=== PATIENT | female | born 1965 | race African-American/Black ===

== ENCOUNTER 2017-07-06 13:29 | Observation (INO) ==
[2017-07-06] MEDS ORDERED: ONDANSETRON 4 MG/2 ML VIAL IV STA (14:04)
[2017-07-06] MEDS ORDERED: INSULIN REGULAR 100 UNIT/ML IV STA (14:04)
[2017-07-06] MEDS ORDERED: ASPIRIN 325 MG TABLET PO STA (14:04)
[2017-07-06] MEDS ORDERED: INSULIN REGULAR 100 UNIT/ML ONE (14:10)
[2017-07-06] MEDS ORDERED: ASPIRIN 325 MG TABLET ONE (14:10)
[2017-07-06] MEDS ORDERED: ONDANSETRON 4 MG/2 ML VIAL ONE (14:10)
[2017-07-06 14:31] LABS: Basophils % 0.6 % (0.0-0.8); Eosinophils # 0.1 10*3/uL (0.0-0.87); Eosinophils % 1.2 % (0.00-10.9); Hematocrit 36.4 VOL% (35.7-47.0); Immature Granulocytes % 0.4 %; Immature Granulocytes Absolute 0.03 #; Lymphocytes # 2.2 10*3/uL (1.4-4.0); Lymphocytes % 31.1 % (21.3-54.2); Mean Corpuscular Hemoglobin 30 PG (27-34); Mean Corpuscular Volume 90.1 FL (87-102); Mean Platelet Volume 11.5 FL (9.6-12.0); Monocytes # 0.6 10*3/uL (0.11-0.8); Monocytes % 8.5 % (1.7-12.7); Neutrophils # 4.1 10*3/uL (1.4-7.4); Neutrophils % 58.2 % (38.7-73.9); Platelet Count 303 T/CUMM (130-400); Red Blood Count 4.04 MC/CUMM (3.8-5.5); Red Cell Distribution Width 15.3 % (9.3-17.3)
[2017-07-06 14:43] LABS: PT Patient Result 10.4 SECS
[2017-07-06 14:58] LABS: Alanine Aminotransferase 21 U/L (13-56); Albumin 3.3 G/DL (3.4-5.0); Alkaline Phosphatase 77 U/L (45-117); Aspartate Amino Transferase 18 U/L (0-37); Bilirubin,Total < 0.39 MG/DL (0.2-1.0); Blood Urea Nitrogen 15 MG/DL (7-18); Calcium 8.5 MG/DL (8.5-10.1); Glucose 386 MG/DL (74-106); Osmolality,Calculated 282.4 MOS/KG (273-304); Potassium 4.3 MMOL/L (3.5-5.1); Sodium 133 MMOL/L (136-145); Total Protein 7.2 G/DL (6.4-8.3)
[2017-07-06] MEDS ORDERED: MAGNESIUM SULF RIDER 2 GM in PREMIX 1 EACH IV STA (16:11)
[2017-07-06] MEDS ORDERED: MAGNESIUM SULF RIDER 50 ML IV ONE (16:14)
[2017-07-06 16:15] LABS: Apearance,Urine CLEAR (Clear); Bilirubin,Urine Negative (Negative); Blood, Urine Negative (Negative); Glucose,Urine (UA) >=500 mg/dL (Negative); Ketones,Urine Negative (Negative); Mucus,Urine Occasional /LPF (Occasional); Nitrite,Urine Negative (Negative); Protein,Urine Negative; RBC,Urine <1 /HPF (0-4); Squamous Epithelial Cell,Urine Occasional /HPF (0-10); Urine Color Straw (Yellow); Urine Specific Gravity 1.024 (1.001-1.035); Urine Urobilinogen < 2.0 EU/DL (0.2-1.0); WBC,Urine 1 /HPF (0-6)
[2017-07-06 16:18] LABS: Barbiturates Screen,Urine Negative (Negative); Benzodiazepines Screen,Urine Negative (Negative); Cannabinoid Screen,Urine Negative (Negative); Opiate Screen,Urine Negative (Negative); Phencyclidine Screen,Urine Negative (Negative)
[2017-07-06] MEDS ORDERED: ACETAMINOPHEN 325 MG TABLET PO PRN (18:11)
[2017-07-06] MEDS ORDERED: ONDANSETRON 4 MG/2 ML VIAL IV PRN (18:11)
[2017-07-06] MEDS ORDERED: DEXTROSE 50% 25 GM/50 ML VIAL IV PRN (18:11)
[2017-07-06] MEDS ORDERED: GLUCAGON 1 MG VIAL IM PRN (18:11)
[2017-07-06] MEDS ORDERED: SODIUM CHLORIDE 0.9% 2,000 ML IV STA (18:30)
[2017-07-06] MEDS: INSULIN LISPRO 100 UNIT/ML SUBCUT SCH (22:58)
[2017-07-06] MEDS: INSULIN NPH/REGULAR 70/30 100 UNIT/ML SUBCUT SCH (22:58)
[2017-07-06] MEDS: SODIUM CHLORIDE 0.9% 1,000 ML IV SCH (22:58)
[2017-07-07 05:57] LABS: Calcium 7.9 MG/DL (8.5-10.1); Osmolality,Calculated 285.7 MOS/KG (273-304); Potassium 3.9 MMOL/L (3.5-5.1); Risk Ratio 5.05; Thyroid Stimulating Hormone 21.4 uIU/ml (0.358-3.74); VLDL CHOLESTEROL 35.2 MG/DL
[2017-07-07] MEDS ORDERED: NITROGLYCERIN SL 0.4 MG TABLET SL PRN (08:44)
[2017-07-07] MEDS ORDERED: ASPIRIN 325 MG TABLET PO SCH (09:00)
[2017-07-07] MEDS ORDERED: PANTOPRAZOLE 40 MG TABLET PO SCH (09:00)
[2017-07-07] MEDS: INSULIN LISPRO 100 UNIT/ML SUBCUT SCH ×2 (10:26→12:59)
[2017-07-07] MEDS: SODIUM CHLORIDE 0.9% 1,000 ML IV SCH ×2 (11:55→14:52)
[2017-07-07] MEDS: INSULIN NPH/REGULAR 70/30 100 UNIT/ML SUBCUT SCH (14:12)
[2017-07-07 16:44] VITALS: BP 158/91
[2017-07-07] MEDS ORDERED: ATORVASTATIN 40 MG TABLET PO SCH (21:00)
== END 2017-07-07 16:57 | disposition home or self-care (01) ==
LOC: N.ED 13:29 → N.EDINP 13:29 → SUATTDRO 16:58 → N.4E 19:58
PROVIDERS: ADMIT Internal Medicine; ATTEND Internal Medicine Infectious Disease